=== PATIENT | male | born 1985 | race African-American/Black ===

== ENCOUNTER 2018-08-26 13:12 | Inpatient (IN) | payer SELFPAY ==
[~2018-08-26] VITALS: Ht 205.7 cm; Wt 103.4 kg
[2018-08-26 16:15] LABS: BASOPHILS % 0.6 % (0.0-2.0); EOSINOPHILS % 1.2 % (0.0-5.0); HEMATOCRIT. 44.8 % (42.0-52.0); HEMOGLOBIN. 15.1 g/dL (14.0-18.0); LYMPHOCYTES % 16.3 % (20.0-50.0); MEAN CORPUSCULAR HEMOGLOBIN 29.6 pg (28.0-32.0); MEAN CORPUSCULAR VOLUME 87.9 fL (80.0-94.0); MEAN PLATELET VOLUME 9.5 fl (7.4-10.4); MONOCYTES % 6.9 % (2.0-8.0); PLATELET 271 x1000/uL (130-400); RED BLOOD CELL COUNT 5.09 mill/uL (4.7-6.1); RED CELL DISTRIBUTION WIDTH 14.5 % (11.6-14.6)
[2018-08-26 16:22] LABS: CHLORIDE 108 mEq/L (98-107); INR 1.1
[2018-08-26] MEDS ORDERED: FUROSEMIDE 40MG/4ML VIAL IVP ONE (17:00)
[2018-08-26] MEDS ORDERED: NITROGLYCERIN OINT 1GM/INCH UDPKT TD ONE (17:00)
[2018-08-26 17:03] LABS: CLARITY URINE CLEAR (CLEAR); COLOR URINE YELLOW (YELLOW); KETONES URINE NEGATIVE (NEGATIVE); LEUKOCYTE ESTERASE URINE NEGATIVE (NEGATIVE); NITRITE URINE NEGATIVE (NEGATIVE); OCCULT BLOOD URINE NEGATIVE (NEGATIVE); PH URINE 7.5 (4.5-8.0); PROTEIN URINE 3+ (NEGATIVE); SPECIFIC GRAVITY URINE 1.011 (1.005-1.030); UROBILINOGEN URINE 0.2 E.U./dL (0.2-1.0)
[2018-08-26] MEDS ORDERED: LORAZEPAM 2MG/ML CPJ IV PRN (18:00)
[2018-08-26] MEDS ORDERED: ENOXAPARIN 40MG/0.4ML SYR SUBCUT NR (21:30)
[2018-08-26] MEDS ORDERED: FUROSEMIDE 40MG/4ML VIAL IVP SCH (21:56)
[2018-08-26 22:04] VITALS: BP 133/66
[2018-08-27] VITALS: BP 104/51
[2018-08-27] MEDS ORDERED: PROM50TA2 PO (00:11)
[2018-08-27] MEDS ORDERED: ASPI-986 PO (00:11)
[2018-08-27 01:38] LABS: CREATINE KINASE MB FRACTION 4.1 ng/mL (0.5-3.6)
[2018-08-27 04:00] VITALS: BP 123/64
[2018-08-27] MEDS ORDERED: FUROSEMIDE 40MG/4ML VIAL IVP SCH (07:15)
[2018-08-27 08:00] VITALS: BP 121/64
[2018-08-27] MEDS: HYDROMORPHONE HCL/PF 2MG/ML CPJ IV PRN ×2 (09:45→16:13)
[2018-08-27] MEDS: ENOXAPARIN 30MG/0.3ML SYR SUBCUT SCH ×2 (09:54→20:42)
[2018-08-27] MEDS: BACLOFEN 10MG TABLET PO SCH (10:46)
[2018-08-27 12:00] VITALS: BP 120/66
[2018-08-27 13:53] LABS: CREATINE KINASE MB FRACTION 8.5 ng/mL (0.5-3.6)
[2018-08-27 16:00] VITALS: BP 124/66
[2018-08-27] MEDS: FUROSEMIDE 40MG/4ML VIAL IVP SCH (17:24)
[2018-08-27] MEDS: ASPIRIN 81MG EC TABLET PO SCH (17:24)
[2018-08-27] MEDS: LOSARTAN POTASSIUM 50 MG TABLET PO SCH (17:25)
[2018-08-27 18:10] LABS: METHADONE URINE SCREEN NEGATIVE (NEGATIVE); OPIATES URINE SCREEN PRESUMTIVE POSITIVE (NEGATIVE); PHENCYCLIDINE URINE SCREEN NEGATIVE (NEGATIVE)
[2018-08-27 18:11] LABS: *AMPHETAMINES SCREEN URINE NEGATIVE (NEGATIVE); *BARBITURATES SCREEN URINE NEGATIVE (NEGATIVE); *BENZODIAZEPINES SCREEN URINE NEGATIVE (NEGATIVE); *COCAINE SCREEN URINE NEGATIVE (NEGATIVE); CANNABINOID URINE SCREEN NEGATIVE (NEGATIVE)
[2018-08-27 20:00] VITALS: BP 124/53
[2018-08-27] MEDS: CARVEDILOL 6.25 MG TABLET PO SCH (20:42)
[2018-08-27] MEDS ORDERED: ONDANSETRON HCL 4MG/2ML INJ IV PRN (21:30)
[2018-08-27] MEDS ORDERED: IPRATROPIUM BROMIDE (0.02%) 0.5MG/2.5ML NEB HHN PRN (21:30)
[2018-08-27 22:05] LABS: HEPATITIS B SURFACE ANTIGEN NEGATIVE
[2018-08-27 22:35] LABS: HEPATITIS A AB IGM NEGATIVE (NEGATIVE)
[2018-08-28] VITALS: BP 128/55
[2018-08-28 04:00] VITALS: BP 120/57
[2018-08-28] MEDS ORDERED: FUROSEMIDE 40MG/4ML VIAL IVP SCH (06:00)
[2018-08-28 06:50] LABS: BASOPHILS % 0.9 % (0.0-2.0); HEMATOCRIT. 47.4 % (42.0-52.0); HEMOGLOBIN. 16.1 g/dL (14.0-18.0); LYMPHOCYTES % 14.6 % (20.0-50.0); MEAN CORPUSCULAR HEMOGLOBIN 29.9 pg (28.0-32.0); MEAN CORPUSCULAR VOLUME 87.9 fL (80.0-94.0); MEAN PLATELET VOLUME 9.3 fl (7.4-10.4); MONOCYTES % 7.4 % (2.0-8.0); NEUTROPHILS % 74.1 % (40.0-76.0); PLATELET 280 x1000/uL (130-400); RED BLOOD CELL COUNT 5.39 mill/uL (4.7-6.1); RED CELL DISTRIBUTION WIDTH 13.9 % (11.6-14.6)
[2018-08-28] MEDS: FUROSEMIDE 40MG/4ML VIAL IVP SCH (06:51)
[2018-08-28 07:44] VITALS: BP 112/52
[2018-08-28 07:54] LABS: CHLORIDE 99 mEq/L (98-107)
[2018-08-28] MEDS: LOSARTAN POTASSIUM 50 MG TABLET PO SCH (08:37)
[2018-08-28] MEDS: ASPIRIN 81MG EC TABLET PO SCH (08:37)
[2018-08-28] MEDS: CARVEDILOL 6.25 MG TABLET PO SCH (08:37)
[2018-08-28] MEDS: BACLOFEN 10MG TABLET PO SCH (08:37)
[2018-08-28] MEDS: ENOXAPARIN 30MG/0.3ML SYR SUBCUT SCH (08:37)
[2018-08-28 11:56] VITALS: BP 115/46
[2018-08-28 12:44] VITALS: BP 115/46
[2018-08-29] MEDS ORDERED: FUROSEMIDE 40MG/4ML VIAL IVP SCH (06:00)
[2018-09-01 09:06] LABS: ANA IFA Negative (.)
[2018-09-01 15:06] LABS: ANTI-DNA DOUBLE STRANDED QUANT 2 IU/mL (0-9)
== END 2018-08-28 13:40 | disposition home or self-care (01) | DRG 194 ==
LOC: ER 13:12 → EDBEDREQTM 17:37 → EDBEDREQ 17:37 → ENRESERV 20:27 → 8WST 21:51
PROVIDERS: ADMIT Internal Medicine Nephrology; ATTEND Internal Medicine Nephrology
DX: I13.0 Hypertensive heart and chronic kidney disease with heart failure and stage 1 through stage 4 chronic kidney disease, or unspecified chronic kidney disease (principal); N17.9 Acute kidney failure, unspecified; Z95.2 Presence of prosthetic heart valve; E44.1 Mild protein-calorie malnutrition; N18.9 Chronic kidney disease, unspecified; I50.43 Acute on chronic combined systolic (congestive) and diastolic (congestive) heart failure; I77.819 Aortic ectasia, unspecified site; D72.829 Elevated white blood cell count, unspecified; I25.10 Atherosclerotic heart disease of native coronary artery without angina pectoris; Z68.24 Body mass index [BMI] 24.0-24.9, adult; Z87.74 Personal history of (corrected) congenital malformations of heart and circulatory system
CPT/HCPCS: 36415; 71045; 80048; 80305; 82550; 82553; 82570; 83880; 84156; 84484; 86160; 86225; 86256; 86705; 86709; 86803; 87340; 93005; 93306; 93970; 94640; 96372; 96374; 96375; 99285; J1170; J1650; J1940; J2060; J2405